=== PATIENT | female | born 1960 | race Caucasian/White ===

== ENCOUNTER 2017-03-13 01:16 | Outpatient (CLI) | payer OTHER | END 2017-03-13 01:17 | disposition home or self-care (01) | DX: S79.912A Unspecified injury of left hip, initial encounter (principal); M16.0 Bilateral primary osteoarthritis of hip; M47.896 Other spondylosis, lumbar region; E03.9 Hypothyroidism, unspecified; R53.83 Other fatigue; D72.819 Decreased white blood cell count, unspecified; E55.9 Vitamin D deficiency, unspecified ==

== ENCOUNTER 2017-04-28 02:03 | Outpatient (CLI) | payer OTHER ==
[2017-04-28 02:25] LABS: BASOPHILS % (AUTO) 0.9 %; EOSINOPHILS % (AUTO) 1.1 %; HCT - HEMATOCRIT 31.4 % (37.0-47.0); HGB - HEMOGLOBIN 10.7 g/dL (12.0-16.0); LYMPHOCYTES % (AUTO) 31.5 %; MEAN CORPUSCULAR HEMOGLOBIN 29.7 pg (27.0-31.0); MEAN CORPUSCULAR VOLUME 87.4 fL (81.0-99.0); MEAN PLATELET VOLUME 6.9 fL (7.9-10.8); NEUTROPHILS % (AUTO) 59.5 %; RED BLOOD COUNT 3.59 10^6/uL (4.20-5.40); RED CELL DISTRIBUTION WIDTH 13.1 % (12.0-15.0); UNCORRECTED WHITE BLOOD COUNT 2.7 x10^3/uL; WHITE BLOOD COUNT 2.7 x10^3/uL (4.8-10.8)
[2017-04-28 02:28] LABS: BAND NEUTROPHILS % (MANUAL) 0 %
[2017-04-28 03:34] LABS: TOTAL T3 0.69 ng/mL (0.87-1.78)
[2017-04-28 03:35] LABS: FERRITIN 62.7 ng/mL (11.0-306.8)
[2017-04-28 03:47] LABS: THYROID STIMULATING HORMONE 3.81 uIU/mL (0.34-5.60)
[2017-04-28 04:54] LABS: BASOPHILS % (MANUAL) 1 %; LYMPHOCYTES % (MANUAL) 36 %; NEUTROPHILS % (MANUAL) 59 %; NP AUTO DIFFERENTIAL? YES; NP MAN DIFFERENTIAL? NO; PLATELET ESTIMATE, MANUAL NORMAL (130-450,000) (NORMAL); TOTAL CELLS COUNTED 100
[2017-05-02 17:12] LABS: T3 REVERSE 63 ng/dL (8-25)
== END 2017-04-28 02:04 | disposition home or self-care (01) ==
LOC: LAB 02:03
PROVIDERS: ATTEND Family Medicine
DX: D64.9 Anemia, unspecified (principal); R53.83 Other fatigue; E03.9 Hypothyroidism, unspecified
CPT/HCPCS: 36415; 82626; 82728; 84439; 84443; 84480; 84481; 84482; 85025

== ENCOUNTER 2017-06-25 01:17 | Outpatient (CLI) | payer OTHER ==
[2017-06-25 05:43] LABS: BASOPHILS % (AUTO) 0.8 %; HCT - HEMATOCRIT 29.8 % (37.0-47.0); HGB - HEMOGLOBIN 9.9 g/dL (12.0-16.0); LYMPHOCYTES # (AUTO) 0.8 10^3/uL (1.5-3.5); MEAN CORPUSCULAR HEMOGLOBIN 29.5 pg (27.0-31.0); MEAN CORPUSCULAR HGB CONC 33.2 g/dL (32.0-36.0); MEAN CORPUSCULAR VOLUME 88.7 fL (81.0-99.0); MEAN PLATELET VOLUME 7.1 fL (7.9-10.8); MONOCYTES # (AUTO) 0.3 10^3/uL (0.0-1.0); MONOCYTES % (AUTO) 6.2 %; NEUTROPHILS # (AUTO) 3.9 10^3/uL (1.5-6.6); RED BLOOD COUNT 3.36 10^6/uL (4.20-5.40); RED CELL DISTRIBUTION WIDTH 12.8 % (12.0-15.0); UNCORRECTED WHITE BLOOD COUNT 5.1 x10^3/uL; WHITE BLOOD COUNT 5.1 x10^3/uL (4.8-10.8)
[2017-06-25 05:55] LABS: ALBUMIN/GLOBULIN RATIO 1.8 (1.0-2.2); BILIRUBIN,TOTAL 0.8 mg/dL (0.2-1.0); CALCIUM 8.9 mg/dL (8.5-10.3); CREATININE 0.6 mg/dL (0.4-1.0); TOTAL PROTEIN 6.6 g/dL (6.7-8.2)
[2017-06-25 06:54] LABS: TOTAL T3 0.57 ng/mL (0.87-1.78)
[2017-06-25 07:05] LABS: THYROID STIMULATING HORMONE 2.93 uIU/mL (0.34-5.60)
== END 2017-06-25 01:18 | disposition home or self-care (01) ==
LOC: LAB 01:17
PROVIDERS: ATTEND Family Medicine
DX: E03.9 Hypothyroidism, unspecified (principal)
CPT/HCPCS: 36415; 80053; 82626; 84439; 84443; 84480; 84481; 84482; 85025

== ENCOUNTER 2019-04-30 21:12 | Outpatient (CLI) | payer BC ==
--- NOTE | 2019-05-01 00:31 | XRAY Report ---
Reason: R HIP PAIN,ARTHRITIS WITH ROTATION INJURY Procedure Date: 04/30/2019 Accession Number: [id number] / [id number] Procedure: XR - Hip w/Pelvis 2-3V RT CPT Code: FULL RESULT: EXAM: RIGHT HIP RADIOGRAPHY EXAM DATE: 04/30/2019 09:26 PM. CLINICAL HISTORY: Right HIP PAIN, ARTHRITIS WITH ROTATION INJURY. COMPARISON: HIP 1 VIEW LT 03/13/2017 4:19 AM. TECHNIQUE: 2 views. 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 No evidence for acute fracture. Joints: Mild bilateral hip degenerative joint disease with joint space narrowing and osteophytes. Mild pubic symphysis degenerative change. No dislocation. Soft Tissues: Unremarkable. 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 No evidence for acute fracture. Mild bilateral hip degenerative joint disease. RADIA
== END 2019-04-30 21:13 | disposition home or self-care (01) ==
LOC: DI 21:12
PROVIDERS: ATTEND Family Medicine
DX: S72.112K Displaced fracture of greater trochanter of left femur, subsequent encounter for closed fracture with nonunion (principal); M16.0 Bilateral primary osteoarthritis of hip

== ENCOUNTER 2019-09-27 04:22 | Outpatient (CLI) | payer BC ==
--- NOTE | 2019-09-27 17:46 | XRAY Report ---
Reason: Prolonged LE (bilateral) peripheral neuropathy Procedure Date: 09/27/2019 Accession Number: [id number] / [id number] Procedure: XR - Lumbar Spine 2 View CPT Code: Final Report FULL RESULT: EXAM: LUMBOSACRAL SPINE RADIOGRAPHY EXAM DATE: 09/27/2019 05:33 AM. CLINICAL HISTORY: Prolonged LE (bilateral) peripheral neuropathy. COMPARISONS: None. TECHNIQUE: 3 views. FINDINGS: Alignment: 22 degrees lumbar levoscoliosis centered at L3-L4. No listhesis. Bones: Five sed-slp-adjdvcx lumbar vertebral bodies are present. No fractures or bone lesions. Disks: Moderate to severe narrowing right lateral L3-L4 disk space and moderate L4-L5 disk narrowing. Associated vertebral osteophytes. Facets: Mild to moderate facet arthropathy from L3-L4-L5-S1. Sacroiliac Joints: Unremarkable. Soft Tissues: Normal. The visualized bowel gas pattern is normal. Incidental splenic calcifications, likely old granulomatous disease. IMPRESSION: 1. No fracture. 2. Moderate mid lumbar levoscoliosis. 3. Mid and lower lumbar degenerative disk disease and facet arthropathy. RADIA
--- NOTE | 2019-09-27 17:50 | XRAY Report ---
Reason: Prolonged LE(Bilateral) peripheral neuropathy Procedure Date: 09/27/2019 Accession Number: [id number] / [id number] Procedure: XR - Thoracic Spine 2 View CPT Code: Final Report FULL RESULT: EXAM: THORACIC SPINE RADIOGRAPHY EXAM DATE: 09/27/2019 05:33 AM. CLINICAL HISTORY: Prolonged lower extremity (bilateral) peripheral neuropathy. COMPARISON: None. TECHNIQUE: 2 views. FINDINGS: Alignment: Mild lower thoracic dextrocurvature. No kyphosis or listhesis. Bones: No fractures or bone lesions. Disks: Normal. Disk heights are maintained. Soft Tissues: Normal. The visualized lungs and cardiomediastinal silhouette are normal. IMPRESSION: 1. Mild lower thoracic dextrocurvature. No kyphosis or listhesis. 2. No evidence of fracture. No suspicious bony lesions. RADIA
== END 2019-09-27 04:23 | disposition home or self-care (01) ==
LOC: DI 04:22
PROVIDERS: ATTEND Family Medicine
DX: M41.9 Scoliosis, unspecified (principal)
CPT/HCPCS: 72070; 72100

== ENCOUNTER 2019-10-16 17:41 | Outpatient (CLI) | payer BC ==
--- NOTE | 2019-10-17 23:27 | Ultrasound Report ---
Reason: INCIDENTAL HEPATOMEGALY ON MRI Procedure Date: 10/16/2019 Accession Number: [id number] / [id number] Procedure: US - Abdomen Complete CPT Code: Final Report FULL RESULT: EXAM: ABDOMEN ULTRASOUND. EXAM DATE: 10/16/2019 06:57 PM. CLINICAL HISTORY: Incidental hepatomegaly on MRI. COMPARISON: None. TECHNIQUE: Real-time scanning was performed with static images obtained. FINDINGS: Liver: Mild diffuse increased echogenicity of the liver. No hepatic masses. Liver measures 22.1 cm in length. Uncertain if this is secondary to hepatomegaly or presence of a Reidel lobe. Small calcific focus in the right lower lobe measuring 4 x 3 mm in diameter. Main portal vein flow: Hepatopetal. Gallbladder: Normal. No stones, wall thickening, or sonographic Bloom's sign. Biliary System: Common bile duct measures 5 mm. No intrahepatic or extrahepatic ductal dilatation. Pancreas: Visualized portion is unremarkable. Kidneys: Right: 11.5 cm longitudinally. Normal. No contour-deforming mass, stones, or hydronephrosis. Left: 11.4 cm longitudinally. Normal. No contour-deforming mass, stones, or hydronephrosis. Spleen: 8.5 x 2.6 x 6.3 cm. Normal in size and echotexture. Aorta and Inferior Vena Cava: Unremarkable. Other: None. IMPRESSION: 1. No acute finding sonographically. 2. Mildly echogenic liver which can be seen with hepatic steatosis 3. Liver measures 22.1 cm in length. Uncertain if this is secondary to hepatomegaly or presence of Reidel lobe. No hepatic masses identified. 4. Small nonspecific calcific focus in the right lobe of the liver measuring up to 4 mm in diameter. RADIA
== END 2019-10-16 17:42 | disposition home or self-care (01) ==
LOC: DI 17:41
PROVIDERS: ATTEND Family Medicine
DX: R16.0 Hepatomegaly, not elsewhere classified (principal)
CPT/HCPCS: 76700

== ENCOUNTER 2019-11-30 00:29 | Outpatient (CLI) | payer BC ==
--- NOTE | 2019-11-30 01:53 | CT Report ---
Reason: SPINAL STENOSIS, LUMBAR RADICULOPATHY Procedure Date: 11/30/2019 Accession Number: [id number] / [id number] Procedure: CT - LUMBAR SPINE WO CPT Code: Final Report FULL RESULT: EXAM: CT LUMBAR SPINE WITHOUT CONTRAST EXAM DATE: 11/30/2019 12:44 AM. CLINICAL HISTORY: SPINAL STENOSIS, LUMBAR RADICULOPATHY. COMPARISONS: LUMBAR SPINE COMPLETE 11/30/2019 12:37 AM. TECHNIQUE: Thin-section axial images were acquired of the lumbar spine from T12 to S1 without contrast. Post-processing: Coronal and sagittal reformats. Other: None. In accordance with CT protocol optimization, one or more of the following dose reduction techniques were utilized for this exam: automated exposure control, adjustment of mA and/or KV based on patient size, or use of iterative reconstructive technique. FINDINGS: Alignment: As before, approximately 22 degree levoscoliosis is noted centered at L3-L4. Bones: Five lsk-rmy-fzqqhqv lumbar vertebral bodies are present. No fractures or bone lesions. Disk Levels/Facets: T12-L1: Mild disk height loss is noted. Minimal endplate irregularity is visualized. There is no significant central canal or neuroforaminal stenosis. L1-L2: Mild disk height loss is visualized. Minimal diffuse disk bulge is noted. Mild facet hypertrophy is visualized. There is no significant central canal or neuroforaminal stenosis. L2-L3: Mild to moderate disk height loss is visualized. There is a left foraminal disk protrusion contacting the exiting L2 nerve root, series 3 image 63. Mild facet/ligamentum flavum hypertrophy is visualized. Findings produce mild central canal stenosis. There is no significant foraminal stenosis. L3-L4: Marked disk height loss is noted on the right. Endplate sclerosis and multifocal subcortical cystic change is noted. A diffuse disk bulge is visualized, asymmetric to the right with associated endplate osteophytosis. Moderate facet/ligamentum flavum hypertrophy is visualized. There is multifocal subcortical cystic change in both facet joints. The constellation of findings produces moderate to severe central canal stenosis. There is also moderate to severe right foraminal stenosis. L4-L5: Marked disk height loss is noted. Diffuse disk bulge is present with associated endplate osteophytosis, asymmetric to the right. This contacts the exited right L4 nerve. Mild facet/ligamentum flavum hypertrophy is visualized. Moderate central canal stenosis is visualized. There is mild to moderate right and moderate left foraminal narrowing, as well. L5-S1: Disk height is relatively well maintained. Minimal diffuse disk bulge is noted. The facet joints are within normal limits. There is no significant central canal or neuroforaminal stenosis. Musculature: Normal. No fatty atrophy. Other: Copious stool is visualized throughout the imaged colon. Multiple calcific densities are identified in the liver and spleen consistent with prior granulomatous disease. The lung bases are clear. IMPRESSION: 1. Multilevel degenerative disk disease and facet arthropathy most pronounced at L3-L4 and L4-L5, as outlined in detail above. 2. Left foraminal disk protrusion at L2-L3 contacting the exiting L2 nerve root. 3. Moderate levoscoliosis centered at L3-L4, as before, unchanged. 4. Prior granulomatous disease. 5. Fecal stasis. RADIA
--- NOTE | 2019-11-30 05:49 | XRAY Report ---
Reason: SPINAL STENOSIS, LUMBAR RADICULOPATHY Procedure Date: 11/30/2019 Accession Number: [id number] / [id number] Procedure: XR - Lumbar Spine Complete CPT Code: Final Report FULL RESULT: EXAM: LUMBOSACRAL SPINE RADIOGRAPHY EXAM DATE: 11/30/2019 01:00 AM. CLINICAL HISTORY: SPINAL STENOSIS, LUMBAR RADICULOPATHY. COMPARISONS: LUMBAR SPINE 2 VIEW 09/27/2019 5:13 AM. TECHNIQUE: 3 views. FINDINGS: Alignment: As before, approximately 22 degrees levoscoliosis is visualized centered at L3-L4. Bones: Five jva-ytc-zkuhnjm lumbar vertebral bodies are present. No fractures or bone lesions. Disks: Disk height loss is again noted on the right at L3-L4 and diffusely at L4-L5. Appearance is unchanged. Facets: Mild to moderate facet arthropathy is again noted, not significantly changed. Sacroiliac Joints: Unremarkable. Soft Tissues: Multiple calcifications are noted over the spleen and in the right hilar region consistent with prior granulomatous disease. Copious stool is visualized throughout the colon. IMPRESSION: 1. Mid and lower lumbar degenerative disk disease and facet arthropathy, not significantly changed. 2. Mid lumbar scoliosis, unchanged. 3. No evidence of acute pathology in the lumbar spine. RADIA
== END 2019-11-30 00:30 | disposition home or self-care (01) ==
LOC: DI 00:29
PROVIDERS: ATTEND Neurological Surgery
DX: M51.36 Other intervertebral disc degeneration, lumbar region (principal); M48.061 Spinal stenosis, lumbar region without neurogenic claudication; M47.816 Spondylosis without myelopathy or radiculopathy, lumbar region; M51.26 Other intervertebral disc displacement, lumbar region; M41.9 Scoliosis, unspecified
CPT/HCPCS: 72110; 72131

== ENCOUNTER 2019-12-01 16:28 | Outpatient (CLI) | payer BC ==
--- NOTE | 2019-12-04 09:03 | DEXA Report ---
Reason: OSTEOPENIA Procedure Date: 12/01/2019 Accession Number: [id number] / [id number] Procedure: DEX - Dexa Spine and/or Hip CPT Code: Final Report FULL RESULT: EXAM: Dexa Spine and/or Hip DATE: 12/01/2019 4:52 PM CLINICAL HISTORY: History of left hip fracture, anorexia, thyroid replacement therapy, postmenopausal TECHNIQUE: Dual energy x-ray absorptiometry (DXA) was performed on a [employer] System. Regions measured are the AP Spine, femoral neck, and if needed forearm. COMPARISON: None. In accordance with the International Society for Clinical Densitometry (ISCD) guidelines, data from previous exams may be reanalyzed using current recommendations and techniques. This is done to allow a more accurate basis for comparison with the current study. FINDINGS: The data for the lumbar spine is as follows: BMD (g/cm/cm) T-SCORE Z-SCORE REGION L1 0.893 -2.0 -0.7 L2 0.978 -1.8 -0.6 L3 1.248 0.4 1.7 L4 1.481 2.3 3.6 TOTAL L1-L2 0.938 -1.9 -0.6 NOTE: All evaluable vertebrae are used for classification The data for the hip is as follows: BMD (g/cm/cm) T-SCORE Z-SCORE REGION Neck 0.898 -1.0 0.3 TOTAL 0.860 -1.2 -0.2 NOTE: The femoral neck or total proximal femur, whichever is lowest, is used for classification. IMPRESSION: THE WHO CLASSIFICATION BASED ON THE INTERNATIONAL REFERENCE STANDARD IS OSTEOPENIA. THE FRACTURE RISK IS INCREASED. RECOMMENDATION: Patients with diagnosis of osteoporosis or osteopenia should have regular bone mineral density assessment. For those eligible for Medicare, routine testing is allowed once every 2 years. Testing frequency can be increased for patients who have rapidly progressing disease or for those who are receiving medical therapy to restore bone mass. COMMENT: World Health Organization (WHO) definitions for osteoporosis and osteopenia: NORMAL BMD: T-score at -1.0 or higher, fracture risk is low OSTEOPENIA BMD: T-score between -1.0 and -2.5, fracture risk is increased. OSTEOPOROSIS BMD: T-score at -2.5 or lower, fracture risk is high. National Osteoporosis Foundation recommends: 1. Obtain adequate dietary calcium (at least 1200 mg per day) and vitamin D (400-800 international units per day). 2. Participate, as appropriate, in regular weightbearing and muscle-strengthening exercise. 3. Avoid tobacco use and reduce alcohol and caffeine intake. 4. For more detailed information see the website at www.NOF.org.
== END 2019-12-01 16:29 | disposition home or self-care (01) ==
LOC: DI 16:28
PROVIDERS: ATTEND Neurological Surgery
DX: M85.89 Other specified disorders of bone density and structure, multiple sites (principal)
CPT/HCPCS: 77080

== ENCOUNTER 2020-02-19 09:32 | Outpatient (CLI) | payer BC ==
--- NOTE | 2020-02-19 18:33 | XRAY Report ---
Reason: LUMBAR RADICULOPATHY Procedure Date: 02/19/2020 Accession Number: [id number] / [id number] Procedure: XR - Lumbar Spine 2 View CPT Code: Final Report FULL RESULT: EXAM: LUMBOSACRAL SPINE RADIOGRAPHY EXAM DATE: 02/19/2020 09:46 AM. CLINICAL HISTORY: Lumbar radiculopathy. Previous lumbar spine fusion. COMPARISONS: XR LUMBAR SPINE 2 OR 3 VW 01/08/2020 8:19 AM. TECHNIQUE: 3 views. FINDINGS: Alignment: No significant change of alignment. Similar degree of lumbar levoscoliosis. Bones: Five wjg-evp-zuwwynb lumbar vertebral bodies are present. No radiographic evidence of acute fracture, lumbar vertebral body height loss or active bone destruction. Again seen are findings of previous surgery at L3-L4 level where there is intervertebral disk space surgical implant and posterior shiloh and screw fusion hardware. No radiographic evidence of posterior shiloh and screw fusion hardware migration or loosening. Disks: Stable findings of disk degeneration, most severe at the L4-L5 level. Facets: Prominent multilevel mid and lower lumbar facet arthropathy. Sacroiliac Joints: Mild to moderate arthritis. Soft Tissues: The colon in the pelvis appears to be quite full of stool. No evidence for mechanical small bowel obstruction. IMPRESSION: 1. Radiographically unchanged appearance of the lumbar spine status post diskectomy and surgical fusion at L3-L4. 2. The pelvic colon is full of stool. RADIA
== END 2020-02-19 09:33 | disposition home or self-care (01) ==
LOC: DI 09:32
PROVIDERS: ATTEND Nurse Practitioner Adult Health
DX: M51.36 Other intervertebral disc degeneration, lumbar region (principal); M47.816 Spondylosis without myelopathy or radiculopathy, lumbar region; Z98.1 Arthrodesis status
CPT/HCPCS: 72100

== ENCOUNTER 2020-08-21 20:40 | Outpatient (CLI) | payer BC ==
[2020-08-21 21:09] LABS: EOSINOPHILS # (AUTO) 0.1 10^3/uL (0.0-0.7); EOSINOPHILS % (AUTO) 2.3 %; HGB - HEMOGLOBIN 11.8 g/dL (12.0-16.0); LYMPHOCYTES # (AUTO) 1.1 10^3/uL (1.5-3.5); MEAN CORPUSCULAR HEMOGLOBIN 28.5 pg (27.0-31.0); MEAN CORPUSCULAR HGB CONC 31.4 g/dL (32.0-36.0); MEAN CORPUSCULAR VOLUME 90.8 fL (81.0-99.0); MEAN PLATELET VOLUME 9.3 fL (7.9-10.8); MONOCYTES # (AUTO) 0.3 10^3/uL (0.0-1.0); NEUTROPHILS # (AUTO) 1.5 10^3/uL (1.5-6.6); NEUTROPHILS % (AUTO) 50.4 %; PLT - PLATELET COUNT 283 10^3/uL (130-450); RED BLOOD COUNT 4.14 10^6/uL (4.20-5.40); RED CELL DISTRIBUTION WIDTH 13.7 % (12.0-15.0)
[2020-08-21 21:33] LABS: % IRON SATURATION 24 % (20-50); ALBUMIN 4.7 g/dL (3.2-5.5); ALBUMIN/GLOBULIN RATIO 1.6 (1.0-2.2); ALKALINE PHOSPHATASE 84 IU/L (42-121); ALT ALANINE AMINOTRANSFERASE 28 IU/L (10-60); AST ASPARTATE AMINOTRANSFERASE 40 IU/L (10-42); BILIRUBIN,TOTAL 0.7 mg/dL (0.2-1.0); BUN - BLOOD UREA NITROGEN 16 mg/dL (6-20); CALCIUM 9.8 mg/dL (8.5-10.3); CARBON DIOXIDE - CO2 29 mmol/L (21-32); CHLORIDE 87 mmol/L (101-111); CREATININE 0.5 mg/dL (0.4-1.0); GLUCOSE 86 mg/dL (70-100); IRON 99 ug/dL (28-170); SODIUM 128 mmol/L (135-145); TOTAL IRON BINDING CAPACITY 405 ug/dL (250-450); TOTAL PROTEIN 7.6 g/dL (6.7-8.2); TRANSFERRIN 289 mg/dL (192-382)
[2020-08-21 21:41] LABS: THYROID STIMULATING HORMONE 1.69 uIU/mL (0.34-5.60)
[2020-08-21 21:43] LABS: FREE T3 3.32 pg/mL (2.5-3.9); FREE T4 (FREE THYROXINE) 0.77 ng/dL (0.58-1.64)
[2020-08-21 21:48] LABS: TOTAL T3 1.26 ng/mL (0.87-1.78)
[2020-08-21 21:49] LABS: FERRITIN 34.2 ng/mL (11.0-306.8)
[2020-08-21 22:00] LABS: CRP HIGH SENSITIVITY < 0.5 mg/L
[2020-08-23 11:38] LABS: HOMOCYSTEINE 9.2 umol/L (<10.4)
== END 2020-08-21 20:41 | disposition home or self-care (01) ==
LOC: LAB 20:40
PROVIDERS: ATTEND Family Medicine
DX: E78.2 Mixed hyperlipidemia (principal); D64.9 Anemia, unspecified; R53.83 Other fatigue; E55.9 Vitamin D deficiency, unspecified; E03.9 Hypothyroidism, unspecified
CPT/HCPCS: 36415; 80053; 82306; 82626; 82728; 83090; 83540; 84439; 84443; 84466; 84480; 84481; 85025; 86141

== ENCOUNTER 2022-10-16 14:13 | Outpatient (CLI) | payer OTHER ==
--- NOTE | 2022-10-19 11:45 | Mammography Report ---
BILATERAL DIGITAL SCREENING MAMMOGRAM 3D/2D WITH EXAGGERATED CC: 10/16/2022 CLINICAL: Baseline exam. Routine screening. No prior exams were available for comparison. Both breasts are heterogeneously dense, which may obscure small masses (category c / 51-75% glandular tissue). No significant masses, calcifications, or other findings are seen in either breast. IMPRESSION: NEGATIVE There is no mammographic evidence of malignancy. A 1 year screening mammogram is recommended. Based on Tyrer-Cuzick model (a risk assessment model), the patient's lifetime risk is 31.4% and her 1 0 year risk is 13.8%. If a patient has an elevated risk, a more comprehensive evaluation should be co nsidered and/or a referral to a genetic counselor. The [place] [employer], [place] [employer], and NCCN Guidelines advise the consideration of Breast MRI as an adjunct to screening mammo graphy in patients whose "Lifetime risk to develop breast cancer" is 20% or higher. This exam was interpreted at Station ID: [id number]. NOTE: For mammograms, a report in lay terms will be sent to the patient. Approximately 15% of breast malignancies will not be visualized mammographically. In the management of a palpable breast mass, a negative mammogram must not discourage biopsy of a clinically suspicious lesion. Electronically Signed By: Mateo Juarez M.D., jr/jey:10/16/2022 15:21:07 ACR BI-RADS Category 1: Negative 3341F PARENCHYMAL PATTERN: (D) - The breast(s) demonstrate(s) heterogeneously dense fibroglandular parenchy ma. BI-RADS CATEGORY: (1) - 1 RECOMMENDATION: (ANNUAL) - Recommend routine annual screening mammography. [id number] 1 year screening LATERALITY: (B)
== END 2022-10-16 14:14 | disposition home or self-care (01) ==
LOC: DI 14:13
PROVIDERS: ATTEND Family Medicine
DX: Z12.31 Encounter for screening mammogram for malignant neoplasm of breast (principal)

== ENCOUNTER 2022-10-16 14:16 | Outpatient (CLI) | payer OTHER ==
--- NOTE | 2022-10-16 16:59 | DEXA Report ---
PROCEDURE: Dexa Spine and/or Hip INDICATIONS: OSTEOPOROSIS TECHNIQUE: Dual energy x-ray absorptiometry (DXA) was performed on a [employer] System. Regions measur ed are the AP Spine, femoral neck, and if needed forearm. COMPARISON: DEXA 12/01/2019. FINDINGS: Lumbar Spine: Bone Mineral Density 0.996 g/cm/cm,T score -1.4, osteopenia. Density has mildly decreased when com pared to the exam from 12/01/2019, which is not statistically significant. Spinal fusion hardware is n oted at the L3 and L4 levels, which were excluded from density measurement. Right Femoral Neck: Bone Mineral Density 0.841 g/cm/cm, T score -1.4, osteopenia. Right Hip: Bone Mineral Density 0.760 g/cm/cm,T score -2.0, osteopenia. Density has decreased by 11.6% when com pared to the exam from 12/01/2019, which is significant. (T score greater or equal to -1.0: NORMAL) (T score from -1.1 to -2.4: OSTEOPENIA) (T score less than or equal to -2.5 to: OSTEOPOROSIS) Impression: Bone mineral density within the osteopenia range at the lumbar spine and right hip, which is signific antly decreased at the right hip when compared to the exam from 12/01/2019. Patients with diagnosis of osteoporosis or osteopenia should have regular bone mineral density assessment. For those eligible for Medicare, routine testing is allowed once every 2 years. Testing frequency can be increased for patients who have rapidly progressing disease or for those who are receiving medical therapy to anita re bone mass. Reviewed by: Ever Ramirez MD on 10/16/2022 4:57 PM PST Approved by: Ever Ramirez MD on 10/16/2022 4:57 PM PST Station ID: [id number]
== END 2022-10-16 14:17 | disposition home or self-care (01) ==
LOC: DI 14:16
PROVIDERS: ATTEND Family Medicine
DX: M85.89 Other specified disorders of bone density and structure, multiple sites (principal)

== ENCOUNTER 2023-04-06 08:43 | Outpatient (CLI) | payer OTHER ==
[~2023-04-06 08:43] MED LIST: GADOBUTROL 7.5 MMOL/7.5 ML VIAL ONE
[2023-04-06 09:08] LABS: CREATININE 0.6 mg/dL (0.4-1.0)
[2023-04-06] MEDS ORDERED: GADOBUTROL 7.5 MMOL/7.5 ML VIAL IVP ONE (11:04)
--- NOTE | 2023-04-06 11:30 | MRI Report ---
PROCEDURE: LUMBAR SPINE W/WO INDICATIONS: LUMBAR RADICULOPATHY CONTRAST: gadavist 6.8ml TECHNIQUE: Noncontrast sagittal T1 spin echo and T2 fast spin echo, sagittal STIR, axial T1 and T2 fast spin ech o through the lumbar spine. In cases with scoliosis, additional coronal T2 fast spin echo may be per formed. After the administration of contrast, sagittal and axial T1 spin echo with fat saturation th rough the lumbar spine. COMPARISON: CT lumbar spine without contrast dated 11/30/2019. FINDINGS: Image quality: Excellent. Alignment and curvature: Interval posterior lateral shiloh and pedicle screw fixation and posterior deco mpression at L3-L4. There are bilateral pedicle screws at L3 and L4. Mild levocurvature, as before, c entered at L3-L4. Trace retrolisthesis of L2 on L3. Trace anterolisthesis of L3 on L4. Trace retrolis thesis of L4 on L5. Marrow: Marrow is of normal overall signal. Prominent discogenic endplate change at L2-L3. No acute vertebral body compression fractures. No suspicious marrow enhancement. Spinal cord: Conus medullaris terminates at the L1 level. Visualized spinal cord demonstrates carlos l signal, without suspicious enhancement. Paraspinous soft tissues: No paravertebral masses or abnormal enhancement. T12-L1: No canal stenosis or foraminal stenosis. L1-L2: Facet hypertrophy. Borderline canal stenosis. No significant foraminal stenosis. L2-L3: Interval progression of findings. Interval development of moderate to severe disc height lo ss and trace retrolisthesis of L2 on L3. There is bilateral facet hypertrophy. There is epidural lipo matosis. There has been significant interval increase in canal stenosis, now moderate to severe. Inte rval development of moderate right foraminal narrowing with flattening deformity on the exiting right L2 nerve root. L3-L4: Posterior decompression and posterior lateral shiloh and pedicle screw fixation. Resolution of canal stenosis. No foraminal stenosis. L4-L5: Severe disc height loss as before. Posterior disc plus osteophyte. Stable moderate canal cammy nosis. Moderate bilateral foraminal stenosis. L5-S1: Bilateral facet hypertrophy. Minimal disc bulge. No canal stenosis or foraminal stenosis. IMPRESSION: 1. Expected postoperative appearance at L3-L4. Resolution of canal stenosis. No foraminal stenosis. 2. Progression of findings at L2-L3. Canal stenosis is now moderate to severe. Moderate right foramin al narrowing has also developed. 3. There is stable moderate canal stenosis at L4-L5, as well as moderate bilateral foraminal stenosis . Reviewed by: Dimitri Morales MD on 04/06/2023 11:28 AM PDT Approved by: Dimitri Morales MD on 04/06/2023 11:28 AM PDT Station ID: [id number]
== END 2023-04-06 08:44 | disposition home or self-care (01) ==
LOC: LAB 08:43
PROVIDERS: ATTEND Physical Medicine & Rehabilitation
DX: M54.16 Radiculopathy, lumbar region (principal); Z98.1 Arthrodesis status; M48.061 Spinal stenosis, lumbar region without neurogenic claudication
CPT/HCPCS: 36415; 72158; 82565; A9585

== ENCOUNTER 2023-12-20 13:22 | Outpatient (CLI) | payer OTHER ==
[2023-12-20 20:04] LABS: BASOPHILS % (AUTO) 0.8 %; EOSINOPHILS # (AUTO) 0.1 10^3/uL (0.0-0.7); EOSINOPHILS % (AUTO) 1.3 %; HCT - HEMATOCRIT 37.3 % (37.0-47.0); HGB - HEMOGLOBIN 11.4 g/dL (12.0-16.0); LYMPHOCYTES # (AUTO) 1.2 10^3/uL (1.5-3.5); LYMPHOCYTES % (AUTO) 32.3 %; MEAN CORPUSCULAR HEMOGLOBIN 28.5 pg (27.0-31.0); MEAN CORPUSCULAR HGB CONC 30.6 g/dL (32.0-36.0); MEAN CORPUSCULAR VOLUME 93.3 fL (81.0-99.0); MEAN PLATELET VOLUME 10.3 fL (7.9-10.8); MONOCYTES # (AUTO) 0.3 10^3/uL (0.0-1.0); MONOCYTES % (AUTO) 8.3 %; NEUTROPHILS # (AUTO) 2.1 10^3/uL (1.5-6.6); PLT - PLATELET COUNT 260 10^3/uL (130-450); WHITE BLOOD COUNT 3.8 x10^3/uL (4.8-10.8)
[2023-12-20 20:20] LABS: ALBUMIN 4.3 g/dL (3.2-5.5); ALBUMIN/GLOBULIN RATIO 1.7 (1.0-2.2); ALKALINE PHOSPHATASE 79 IU/L (42-121); ALT ALANINE AMINOTRANSFERASE 20 IU/L (10-60); AST ASPARTATE AMINOTRANSFERASE 20 IU/L (10-42); BILIRUBIN,TOTAL 0.3 mg/dL (0.2-1.0); BUN - BLOOD UREA NITROGEN 20 mg/dL (6-20); CALCIUM 9.7 mg/dL (8.5-10.3); CARBON DIOXIDE - CO2 31 mmol/L (21-32); CHLORIDE 102 mmol/L (101-111); CHOL/HDL RATIO 2.5 (<4.4); CHOLESTEROL 175 mg/dL; CREATININE 0.6 mg/dL (0.6-1.3); CRP HIGH SENSITIVITY 0.22 mg/L; GFR - MDRD 102 (>89); GLUCOSE 82 mg/dL (74-104); HDL CHOLESTEROL 70 mg/dL; LDL CHOLESTEROL,CALCULATED 90 mg/dL; LDL/HDL RATIO 1.3 (<4.4); POTASSIUM 4.2 mmol/L (3.5-4.5); SODIUM 135 mmol/L (135-145); TOTAL PROTEIN 6.9 g/dL (6.4-8.9); TRIGLYCERIDES 76 mg/dL (48-352); VLDL CHOLESTEROL 15 mg/dL
[2023-12-20 20:30] LABS: THYROID STIMULATING HORMONE 1.43 uIU/mL (0.34-5.60)
[2023-12-20 20:36] LABS: FERRITIN 25.9 ng/mL (11.0-306.8)
[2023-12-21 09:20] LABS: ESTIMATED AVERAGE GLUCOSE 123 mg/dL (70-100); HEMOGLOBIN A1c% 5.9 % (4.27-6.07)
[2023-12-22 04:09] LABS: VITAMIN D 25-HYDROXY 66.6 ng/mL (30.0-100.0)
== END 2023-12-20 13:23 | disposition home or self-care (01) ==
LOC: LAB.S 13:22
PROVIDERS: ATTEND Family Medicine
DX: R73.03 Prediabetes (principal); I10 Essential (primary) hypertension; E03.9 Hypothyroidism, unspecified; R53.83 Other fatigue; F50.00 Anorexia nervosa, unspecified; E78.1 Pure hyperglyceridemia; E78.5 Hyperlipidemia, unspecified
CPT/HCPCS: 36415; 80053; 80061; 82306; 82626; 82728; 83036; 83090; 83721; 84439; 84443; 84480; 84481; 84482; 85025; 86141